=== PATIENT | male | born 1965 | race African-American/Black ===

== ENCOUNTER 2016-11-01 22:43 | Emergency (ER) | payer OTHER ==
[2016-11-01] MEDS ORDERED: Lidocaine 1% 20 ML MDV ONE (23:09)
[2016-11-02] MEDS ORDERED: traMADol HCl 50 MG TAB ONE (00:12)
[2016-11-02] MEDS ORDERED: Sulfameth/Trimethoprim DS 800-160mg TAB ONE (00:12)
== END 2016-11-02 00:20 | disposition home or self-care (01) ==
LOC: BURERS 22:43
DX: L02.413 Cutaneous abscess of right upper limb (principal); L02.01 Cutaneous abscess of face; F17.210 Nicotine dependence, cigarettes, uncomplicated
CPT/HCPCS: 10060; 87070; 87077; 87186; 87205; J2001

== ENCOUNTER 2017-05-28 14:42 | Emergency (ER) | payer OTHER | END 2017-05-28 15:14 | disposition home or self-care (01) | LOC: BURERS 14:42 | DX: D17.0 Benign lipomatous neoplasm of skin and subcutaneous tissue of head, face and neck (principal); F17.210 Nicotine dependence, cigarettes, uncomplicated | CPT/HCPCS: 99282 ==

== ENCOUNTER 2020-01-05 15:12 | Emergency (ER) | payer SELFPAY ==
[2020-01-05] MEDS ORDERED: AMOXicillin 250 MG CAP ONE (15:21)
[2020-01-05] MEDS ORDERED: hydrOXYzine 25 MG TAB ONE (15:21)
[2020-01-05] MEDS ORDERED: traMADol HCl 50 MG TAB ONE (15:21)
== END 2020-01-05 15:39 | disposition home or self-care (01) ==
LOC: BURERS 15:12
DX: L01.00 Impetigo, unspecified (principal); L30.9 Dermatitis, unspecified; F17.210 Nicotine dependence, cigarettes, uncomplicated
CPT/HCPCS: 99283

== ENCOUNTER 2020-01-21 11:33 | Emergency (ER) | payer SELFPAY | END 2020-01-21 13:05 | disposition home or self-care (01) | LOC: BURERS 11:33 | DX: L03.115 Cellulitis of right lower limb (principal); L03.116 Cellulitis of left lower limb; F17.210 Nicotine dependence, cigarettes, uncomplicated | CPT/HCPCS: 99283 ==